=== PATIENT | female | born 1980 | race Caucasian/White ===

== ENCOUNTER 2024-07-02 08:00 | Outpatient (CLI) | payer OTHER ==
[~2024-07-02] VITALS: Ht 160 cm; Wt 90.7 kg
[~2024-07-02 08:00] MED LIST: CLARITIN5 MG
[2024-07-02] MEDS ORDERED: SYNTHROID50 MCG PO (09:58)
[2024-07-02 09:59] VITALS: BP 135/92
[2024-07-02 10:45] LABS: HEMATOCRIT 36.7 % (36.0-45.00); HEMOGLOBIN 12.2 g/dL (12.0-15.00); MEAN CELL VOLUME 77.9 fL (80.00-100.00); MEAN CORPUSCULAR HEMOGLOBIN 25.8 pg (27.00-32.0); MEAN CORPUSCULAR HGB CONC 33.2 g/dl (32.0-36.0); PLATELET COUNT 274 K/uL (150-450); RED BLOOD COUNT 4.71 M/uL (4.00-6.00); RED CELL DISTRIBUTION WIDTH 15.2 % (11.5-14.5)
[2024-07-02 11:10] LABS: PH,URINE 5.5 (5.0-8.0); URINE APPEARANCE Clear; URINE BILIRRUBIN Negative (NEGATIVE); URINE BLOOD Negative; URINE COLOR Yellow; URINE GLUCOSE Negative (NEGATIVE); URINE KETONE Negative (NEGATIVE); URINE LEUKOCYTE Small; URINE NITRATE Negative; URINE PROTEIN Negative (NEGATIVE); URINE UROBILINOGEN 0.2 E.U./dl
[2024-07-02 11:14] LABS: URINE BACTERIA 3216.5 uL (0.0-1933); URINE EPITHELIAL CELLS 32.9 uL (0.0-38.8); URINE RBC 4.4 uL (0.0-20.8); URINE WBC 43.8 uL (0.0-23.2)
[2024-07-02 11:24] LABS: INR 0.98; PARTIAL THROMBOPLASTIN TIME 28.5 SECONDS (22.0-34.0); PROTHROMBIN TIME 10.7 SECONDS (9.0-11.5)
[2024-07-02 11:31] LABS: URINE CAST 0.14 uL (0.0-1.40)
[2024-07-02 11:54] LABS: CALCIUM 9.2 mg/dL (8.5-10.1); CREATININE SERUM 0.74 mg/dL (0.55-1.02); GFR 86.49; POTASSIUM 3.89 mEq/L (3.5-5.1)
== END 2024-07-02 08:01 | disposition home or self-care (01) ==
LOC: RAD 08:00 → ADM 08:30 → EDSTATUS 07-19 08:30 → CIR.AMB 07-19 08:30
PROVIDERS: ATTEND Otolaryngology
DX: J34.3 Hypertrophy of nasal turbinates (principal); J34.2 Deviated nasal septum; J32.0 Chronic maxillary sinusitis; R05.9 Cough, unspecified